=== PATIENT | male | born 1955 | race Caucasian/White ===

== ENCOUNTER 2021-05-30 07:54 | Outpatient (CLI) | payer BC, SELFPAY ==
--- NOTE | ~2021-05-30 | NM_ITS ---
EXAMINATION: NM bone scan whole body DATE: 05/30/2021 10:30 INDICATION: Prostate cancer TECHNIQUE: 37.2 mCi Tc-99m HDP was administered intravenously. Delayed whole-body scintigrams were o btained. COMPARISON: There are no recent relevant imaging studies at our institution. FINDINGS: Typical distribution of mild likely degenerative joint centered uptake at the radial aspect of the bi lateral carpi and at a few joints in the hands and feet. No other suspicious foci of abnormal bone up take. IMPRESSION: 1. No lesion suspicious for osseous metastatic disease. Reviewed, dictated and finalized at location A.
== END 2021-05-30 07:55 | disposition home or self-care (01) ==
PROVIDERS: PCP Family Medicine; Visit Provider Urology
DX: C61 Malignant neoplasm of prostate (principal)
CPT/HCPCS: 78306; A9561

== ENCOUNTER 2021-07-20 13:42 | Outpatient (CLI) | payer BC, SELFPAY ==
--- NOTE | 2021-07-20 13:46 | ECG_ITS ---
Measurements Intervals [place] Rate: 75 P: 73 IA: 164 QRS: -1 QRSD: 101 T: 63 QT: 367 QTc: 411 Interpretive Statements SINUS RHYTHM POSSIBLE LEFT ATRIAL ENLARGEMENT BORDERLINE R WAVE PROGRESSION, ANTERIOR LEADS CONSIDER INFERIOR INFARCT, AGE INDETERMINATE BASELINE ARTIFACT- I, II, III, AVR, AVL ABNORMAL ECG Electronically Signed On 07-20-2021 15:15:21 CDT by Karl Ulloa D.O.
[2021-07-20 14:11] LABS: Basophils Absolute Auto 0.1 K/mm3 (0.0-0.1); Basophils Percent Auto 0.5 % (0.2-1.2); Eosinophils Absolute Auto 0.2 K/mm3 (0-0.3); Eosinophils Percent Auto 1.7 % (0-4.4); Hematocrit 46.7 % (42.0-52.0); Hemoglobin 15.9 g/dL (14.0-18.0); Immature Granulocyte Absolute 0.03 K/mm3 (0.00-0.031); Immature Granulocyte Percent A 0.3 % (0-0.5); Lymphocytes Absolute Auto 2.73 K/mm3 (0.9-3.2); Lymphocytes Percent Auto 24.8 % (18.3-44.2); Mean Corpuscular Hemoglobin 29.1 pg (26-34); Mean Corpuscular Volume 85.5 fl (80-100); Mean Platelet Volume 9.1 fl (7.4-10.4); Monocytes Absolute Auto 0.7 K/mm3 (0.1-0.6); Monocytes Percent Auto 6.7 % (2.6-8.5); Neutrophils Absolute Auto 7.3 K/mm3 (1.3-6.7); Platelet Count Result 317 k/mm3 (150-375); Red Blood Count 5.46 M/mm3 (4.6-6.20); Red Cell Distribution Width 13.4 % (11.5-14.5)
[2021-07-20 14:20] LABS: INR 0.9; Prothrombin Time 12.5 Seconds (11.1-14.7)
[2021-07-20 14:21] LABS: Partial Thromboplastin Time 27.7 SECONDS (22.3-36.8)
[2021-07-20 14:28] LABS: Alanine Aminotransferase 49 U/L (4-50); Albumin Level 4.8 g/dL (3.5-5.1); Alkaline Phosphatase 83 U/L (38-126); Anion Gap 9 mmol/L (8-16); Aspartate Amino Transferase 36 U/L (17-59); Bilirubin,Total 0.5 mg/dL (0.2-1.3); Blood Urea Nitrogen 14 mg/dL (9-20); Calcium 9.8 mg/dL (8.4-10.2); Carbon Dioxide 28 mmol/L (22-30); Chloride 100 mmol/L (98-107); Estimated Glomerular Filt Rate > 60; Glucose 161 mg/dL (65-110); Potassium 3.9 mmol/L (3.4-5.0); Sodium 137 mmol/L (137-145)
== END 2021-07-20 13:43 | disposition home or self-care (01) ==
LOC: ANHSURGERY 13:45
PROVIDERS: PCP Family Medicine; Visit Provider Urology
DX: Z01.818 Encounter for other preprocedural examination (principal); C61 Malignant neoplasm of prostate; I10 Essential (primary) hypertension; R94.31 Abnormal electrocardiogram [ECG] [EKG]
CPT/HCPCS: 36415; 80053; 85025; 85610; 85730; 86850; 86900; 86901; 87086; 93005

== ENCOUNTER 2021-08-01 00:25 | Day surgery (SDC) | payer BC, SELFPAY ==
--- NOTE | 2021-07-20 11:06 | PC.NURSE ---
Report to the Outpatient Waiting Room, entrance under the green pavilion located off [facility], at time __6:00AM on date _08/01/21____. OR Time: ___7:30AM . - You and your visitor will be asked a series of questions to screen for COVID 19 for your protection. - A mask is required within the hospital. - Only one visitor is allowed at this time. Patient visitors will be guided where to wait when not with patient. Preoperative COVID Testing Requirements: No COVID Test needed if: (proof is required; if not received patient will have Rapid Test prior to entry) - Patient has received COVID Vaccine at least 14 days prior to procedure date or - Patient has positive COVID test result within last 90 days of surgery date. COVID Test needed if above criteria is not met If not COVID vaccinated a COVID test must be conducted within 72 hours of surgery and patient is asked to isolate self from time of testing until procedure. You will go to the [facility] for your COVID testing. The [facility] is located at the corner of [address] [facility]. You will only be called if COVID results are positive and your surgeon may reschedule your elective surgery date. Patients may have clear liquids (water, carbonated beverages, clear teas, apple juice) until 3 hours prior to surgery with a maximum of 20 ounces. - No food from midnight until time of surgery - Infants may have breast milk until 4 hours before surgery, infant formula 6 hours prior to surgery. - Children will be allowed to drink immediately following surgery. If applicable, please bring a bottle or sippy cup to assist with drinking. Juice, water, soda, and popsicles are readily available. For infants on formula, please bring formula the day of surgery. Pacifiers are allowed. Take the following medications with a SIP of water the morning of surgery: NONE Medications to discontinue per physician ALL VITAMINS/SUPPLEMENTS 3 DAYS PRE-OP Date to take last dose 07/29/21 Please no make-up, nail hebrew, hairspray, perfume, deodorant, or body powder the day of surgery. No jewelry (including any body piercings) or valuables the day of surgery, leave them at home. Please take a shower or bath the night before, or the morning of, surgery with an antibacterial soap. Wear comfortable, loose fitting clothing. Children are encouraged to wear pajamas. - Jewelry must be removed prior to entering the operating room. Rings and piercings that are not removed may be cut off. - The hospital will not accept responsibility for valuables. - Please leave all valuables, including medications, at home the day of surgery. If you are going home after surgery, a licensed motorcoach driver must drive you home. - NO public transportation without another adult. - We recommend that an adult stay with you for 24 hours following discharge. - We also recommend that you do not drive, make important decision, drink alcoholic beverages, or take any drugs that were not prescribed by your health care provider for at least 24 hours after your discharge time. For Pediatric surgeries, we recommend two adults accompany the child home (only one inside the building at this time). Follow any additional instructions given to you from your surgeon. Telephone instructions given to __PATIENT'S -GAIL and asked if any additional questions and then verbalized understanding. Patient advised to call surgeon office or pre surgery nurse liaison [phone] if any additional questions.
[2021-07-20 11:18] VITALS: BMI 27.7
--- NOTE | 2021-07-31 13:55 | WPDANESEPPF ---
Anes - Initial Pre Proc Eval Procedure: Operation Date: 08/01/21 07:30 Proposed Procedures p Robotic Assisted Nerve Sparing Prostatectomy, Possible Bilateral Pelvic Lymph Node Dissection - Manuel Pitts MD Date/Time: 07/31/21 13:55 Surgeon: Manuel Pitts MD Pre Op Diagnosis: Prostate Cancer Patient Data Age: 66 Gender: M Height: 1.88 m Weight: 98 kg Allergies Allergy/AdvReac Type Severity Reaction Status Date / Time aspirin Allergy Mild Hives Verified 08/01/21 07:03 meperidine AdvReac Mild Other Verified 08/01/21 07:05 Home Medications Medication Instructions Recorded Confirmed Type A-C-E-zinc ox-cupric ox-lutein 2 tablet PO DAILY 07/20/21 07/20/21 History [Ocular Vitamins] budesonide-formoterol [Symbicort] 2 puff INHALATION HS 07/20/21 07/20/21 History cholecalciferol (vitamin D3) 50 mcg PO DAILY 07/20/21 07/20/21 History cyanocobalamin (vitamin B-12) 1,000 mcg PO DAILY 07/20/21 07/20/21 History glimepiride 2 mg PO QAM 07/20/21 07/20/21 History lisinopril-hydrochlorothiazide 1 tablet PO QAM 07/20/21 07/20/21 History metformin 1,000 mg PO BID 07/20/21 07/20/21 History prednisolone acetate 1 drp LEFT EYE USEASDIRECTD 07/20/21 07/20/21 History sitagliptin [Januvia] 100 mg PO QAM 07/20/21 07/20/21 History vitamin E 180 unit PO DAILY 07/20/21 07/20/21 History Patient hx anesthesia problems: none Family hx anesthesia problems: none Results Review: All pre-operative results and documents have been reviewed as part of the pre-operative evaluation. [facility] Past Medical History Medical History (Updated 08/01/21 @ 07:07 by Arden Nolen MD) Asthma Back pain Chronic GERD Diabetes HTN (hypertension) Overweight (BMI 25.0-29.9) Prostate CA Family History Family History (Updated 05/08/16 @ 10:18 by DOCTOR UNKNOWN) Grandparent Diabetes mellitus Family history of malignant neoplasm Social History Social History Smoking status: Never smoker Alcohol intake: never Substance use: never Living arrangements: with family Additional living arrangements comments: Spiritual care concerns: No Anes - Eval Final PreProcedure Day of Procedure 07/31/21 13:55 Patient weight: overweight Heart: regular rate and rhythm Lungs: clear to auscultation and normal air movement Airway: Mallampati scale class II Neurological: alert and oriented Last oral intake: >/= 8 hours ASA classification: III Emergent: no Anesthetic plan: proceed Anesthesia type and monitoring: general ETT Results Review: All pre-operative results and documents have been reviewed as part of the pre-operative evaluation. Informed Consent: The patient's anesthetic plan and its attendant risks and benefits were discussed with the patient/family/POA. Questions were solicited and answers provided to the satisfaction of the patient/family/POA.
[2021-08-01] VITALS (14 sets, daily range): BP systolic 119–144; BP diastolic 62–83; PULSE 70–84; RESP 12–24; TEMP 36.1–36.6; O2SAT 95–100
[2021-08-01] MEDS: LACTATED RINGERS 1,000 ML 30 ML IV CONT ×3 (06:32→13:27)
[2021-08-01 06:39] LABS: Glucose Point of Care 135 mg/dl (65-105)
--- NOTE | 2021-08-01 07:17 | WPDHPUPDATE1 ---
History and Physical Update Update Date/Time: 08/01/21 07:17 History and Physical has been reviewed, including an updated exam of the patient. There are NO changes in the patient's condition. Risks, benefits, and alternatives have been discussed and questions answered. Patient agrees to proceed with procedure. Proceed with robotic assist nerve sparing porstatectomy with possible plnd.
[2021-08-01] MEDS: ceFAZolin 2 GM/D5W 50 ML 2 GM/50 ML BAG IVPB (07:30)
--- NOTE | 2021-08-01 12:01 | W.PM.PROC2 ---
Procedure Note - Detailed Date of Procedure 08/01/21 Pre-op Diagnosis Prostate Cancer Post-op Diagnosis same Procedure Performed Robotic assisted nerve-sparing prostatectomy with bilateral pelvic lymphadenectomy Surgeon Manuel Pitts MD Anesthesia general Description of Procedure Patient is taken the operative suite correctly identified. Once anesthesia was obtained was placed in low-lying dorsal lithotomy position and prepped and draped usual sterile fashion. Eighteen Kinyarwanda Mayo with 20 cc were placed in bladder. Supraumbilical incision was then made and carried down to the rectus fascia. Veress needle was inserted. The abdomen was insufflated to 15 mmHg pressure. Camera port was placed under direct vision. Working ports were placed in appropriate locations under direct vision also. The robot was docked after the patient was placed in steep Trendelenburg position. All pressure points had been padded. Posterior approach was then obtained. Seminal vesicles were dissected out vas were transected. It was noted that the plane between the prostate and rectum was somewhat difficult to develop this time. I should state that prior starting the posterior approach we had to do an extensive adhesions lysis of adhesions along the left cul-de-sac as well as left lateral wall of the pelvic floor from the colon. Bladder was taken down. Space of Retzius was developed bilaterally. Puboprostatic were taken down. Dorsal venous complex was isolated using an 0 Vicryl in secured to the pubic bone. Bladder neck was then opened anteriorly. Patient had a median lobe which we resected in its entirety with the specimen. Posterior bladder neck was transected. There was a nice bladder sparing neck procedure done. The plane posteriorly was opened to expose the seminal vesicles. Bilateral nerve-sparing was performed. We were able to dissect the prostate off of the rectum at this point time. Dorsal venous complex was transected. Urethra was transected. Specimen was placed in Endo-Catch bag. Bilateral pelvic lymph node dissections were performed with the boundaries being the external iliac vein, obturator nerve, Jacob's ligament, and the bifurcation of the vessels. Clips were placed proximally distally on the packets. The left jason packet had a clip placed on it for identification. These also were placed in Endo-Catch bags. The wound was irrigated. Surgicel was placed in the obturator fossa as well as on the floor where the neurovascular bundles were located. We then placed a Allan stitch using 0 Vicryl. The bladder neck was then brought down to the urethral stump and anastomosed using V lock suture in a running continuous fashion. There was good approximation of mucosa. Eighteen Kinyarwanda Mayo was then inserted inflated with 10 cc in the balloon. The bladder was filled 200 cc of sterile water. There was no evidence of extravasation at this time. APRIL drain was then placed with the 3rd port site. All lap count needle count sponge counts were correct. The robot was undocked. Specimen was retrieved through the midline incision. Midline incision was closed using 0 Vicryl in a running fashion. Subcuticular stitches were then placed in the port sites. Wounds were anesthetized using 1% lidocaine. Patient tolerated procedure well without any complications taken recovery stable condition. Estimated Blood Loss 100 Drains Yes Packing No Pathology yes Complications No immediate complications Condition stable Disposition PACU
[2021-08-01 12:32] LABS: Glucose Point of Care 207 mg/dl (65-105)
[2021-08-01] MEDS: INSULIN HUMAN REGULAR (*BKC) 100 UNITS/ML SUB-Q (12:44)
[2021-08-01] MEDS: fentaNYL CITRATE INJ (*CRX) 100 MCG/2 ML VIAL 25 MCG IV PUSH ×6 (12:58→13:38)
[2021-08-01] MEDS: LACTATED RINGERS 1,000 ML 125 ML IV CONT (15:43)
[2021-08-01] MEDS: hydroCHLOROthiazide 12.5 MG CAPSULE PO (15:48)
[2021-08-01] MEDS: lisinopriL 20 MG TABLET PO (15:49)
[2021-08-01 17:07] LABS: Glucose Point of Care 184 mg/dl (65-105)
[2021-08-01] MEDS: metFORMIN HCL 500 MG TABLET 1000 MG PO (17:21)
[2021-08-01] MEDS: DOCUSATE SODIUM 100 MG CAPSULE PO (17:21)
--- NOTE | 2021-08-01 19:00 | WPDCN ---
Assessment and Plan Assessment and plan (1) Prostate cancer: Code(s): C61 - Malignant neoplasm of prostate Status: Acute Assessment and Plan: Postoperative day 0 status post robotic assisted nerve-sparing prostatectomy with bilateral pelvic lymphadenectomy. Wound care, pain control, DVT prophylaxis defer to primary service. (2) Type 2 diabetes mellitus: Code(s): E11.9 - Type 2 diabetes mellitus without complications Status: Acute Assessment and Plan: Resume oral diabetes medication. Initiate sliding scale insulin, Accu-Cheks, and hypoglycemic protocol. Check hemoglobin A1c in a.m. (3) Hypertension: Code(s): I10 - Essential (primary) hypertension Status: Acute Assessment and Plan: Blood pressures were reviewed and they have been stable postoperatively. Resume antihypertensives and monitor closely. (4) Asthma: Code(s): J45.909 - Unspecified asthma, uncomplicated Status: Acute Assessment and Plan: No acute issues. Continue Symbicort. Additional Plan Thank you for allowing us to participate in this patient's care. Please do not hesitate to contact us with any questions. Supervising physician for this medical consultation is Dr. Harry Campos. HPI Data of Consult Date/Time: 08/01/21 19:00 Requesting Physician: Manuel Pitts MD Primary Care Provider: Sherif Marques MD Consult Narrative Narrative: This is a 66-year-old male with diabetes, hypertension, and recent diagnosis of prostate cancer whom the hospitalist service has been consulted for management of his medical conditions postoperatively. For the last couple of years or so he has had symptoms BPH and during a recent routine appointment with his primary care provider he indicated that his symptoms had gotten worse. A subsequent PSA came back elevated and he was eventually diagnosed with prostate cancer and today he underwent robotic assisted nerve-sparing prostatectomy with bilateral pelvic lymphadenectomy per Dr. Pitts. Postoperatively he has been doing quite well with only minimal discomfort in the pelvic region and somewhat in the low back which he believes is due to positioning in bed. Mayo catheter is in place and has been draining with out issue. He was able to eat dinner without issue and he denies nausea and vomiting. He also denies postoperative fever, chills, sweats, chest pain, and shortness of breath. Review of Systems Review of Systems: Twelve systems were reviewed. No recent cold or flu symptoms. His diabetes is typically well controlled and he rarely sees a glucose over 135. Glucose is evening was over 200 which is somewhat concerning to the patient. No blurry vision, polydipsia, or polyuria. His hypertension has been well controlled. He has no history of cardiac disease. He has asthma which is also well controlled on maintenance inhalers. No history of venous thromboembolism. Except as documented, all other systems were reviewed and are negative. [facility] Past Medical History Medical History (Updated 08/01/21 @ 22:23 by Jessica Tolbert PA-C) Asthma Gastroesophageal reflux disease Hypertension Prostate cancer Spinal stenosis Type 2 diabetes mellitus Surgical History Surgical History (Updated 08/01/21 @ 22:22 by Jessica Tolbert PA-C) History of left cataract extraction History of radical prostatectomy (08/01/21) Robotic assisted nerve-sparing prostatectomy with bilateral pelvic lymphadenectomy for prostate cancer per Dr. Pitts. Family History Family History Grandparent Diabetes mellitus Family history of malignant neoplasm Social History Social History (Updated 08/01/21 @ 22:23 by Jessica Tolbert PA-C) Social History: Surrogate decision maker: Cindy Juarez, . Code status:
[2021-08-01 20:16] LABS: Hemoglobin A1C 6.5 % (<5.7)
[2021-08-01] MEDS: HYOSCYAMINE SULFATE 0.125 MG TABLET SUBLINGUAL (20:37)
[2021-08-01 21:16] LABS: Glucose Point of Care 204 mg/dl (65-105)
[2021-08-01] MEDS: HYDROcodone/acetaminophen (*CRX) 5-325 MG TABLET 2 TAB PO (22:44)
[2021-08-02] VITALS: BP 132/70; PULSE 71; RESP 18; TEMP 36.5; O2SAT 99
[2021-08-02] MEDS: LACTATED RINGERS 1,000 ML 125 ML IV CONT (02:05)
[2021-08-02 05:07] VITALS: BP 141/65; PULSE 73; RESP 16; TEMP 36.2; O2SAT 99
[2021-08-02 05:38] LABS: Hematocrit 41.2 % (42.0-52.0); Hemoglobin 13.7 g/dL (14.0-18.0)
[2021-08-02 06:01] LABS: Alanine Aminotransferase 27 U/L (4-50); Albumin Level 3.5 g/dL (3.5-5.1); Alkaline Phosphatase 85 U/L (38-126); Anion Gap 8 mmol/L (8-16); Aspartate Amino Transferase 20 U/L (17-59); Bilirubin,Total 0.4 mg/dL (0.2-1.3); Blood Urea Nitrogen 10 mg/dL (9-20); Calcium 8.6 mg/dL (8.4-10.2); Carbon Dioxide 27 mmol/L (22-30); Chloride 99 mmol/L (98-107); Estimated CRCL calculation 85 ml/min; Estimated Glomerular Filt Rate > 60; Glucose 128 mg/dL (65-110); Magnesium 1.7 mg/dL (1.6-2.3); Potassium 3.5 mmol/L (3.4-5.0); Sodium 134 mmol/L (137-145)
[2021-08-02] MEDS: HYDROcodone/acetaminophen (*CRX) 5-325 MG TABLET 1 TAB PO ×2 (06:09→14:33)
[2021-08-02] MEDS: HYOSCYAMINE SULFATE 0.125 MG TABLET SUBLINGUAL (06:18)
[2021-08-02 07:36] LABS: Glucose Point of Care 165 mg/dl (65-105)
--- NOTE | 2021-08-02 07:58 | WPDUROPN2 ---
Progress Note: A&P Assessment and Plan (1) Prostate cancer: Code(s): C61 - Malignant neoplasm of prostate Status: Acute Assessment and Plan: Doing well at this time. Ambulate with assistance. Possible discharge later today. Patient will be evaluated by our nurse practitioner. He will follow up next week for catheter cystogram Subjective Subjective Date/Time Seen: 08/02/21 07:58 Post Op day: 1 Principal diagnosis: Adenocarcinoma of the prostate Interval history: Patient had trouble sleeping last night but denies any significant pain or discomfort at this time. He is up in a chair eating breakfast Review of Systems Review of Systems: All systems reviewed & are unremarkable except as noted in HPI and below Exam Const: General: cooperative, comfortable and no acute distress Resp: Effort & Inspection: normal respiratory effort Cardio: Rate: regular rate Rhythm: regular rhythm GI: Inspection: normal to inspection GI Palp: Yes Soft to palpation Urinary Catheter: Urinary Catheter: patent and draining and urine clear Objective Data Vital Signs Vital Signs: Vital Signs - 24 hr 08/01/21 12:25 08/01/21 12:40 08/01/21 12:45 Temperature 36.1 C L Pulse Rate 70 71 73 Respiratory Rate 24 H 14 16 Blood Pressure 119/62 130/70 130/70 Pulse Oximetry 100 100 100 08/01/21 13:00 08/01/21 13:15 08/01/21 13:30 Temperature Pulse Rate 71 76 76 Respiratory Rate 13 16 12 Blood Pressure 123/83 135/72 130/70 Pulse Oximetry 100 96 95 08/01/21 13:45 08/01/21 14:30 08/01/21 14:45 Temperature 36.2 C L 36.2 C L Pulse Rate 75 79 78 Respiratory Rate 12 16 18 Blood Pressure 134/76 133/72 132/68 Pulse Oximetry 95 98 97 08/01/21 15:15 08/01/21 16:15 08/01/21 20:00 Temperature 36.3 C L 36.6 C Pulse Rate 78 82 84 Respiratory Rate 18 18 16 Blood Pressure 139/71 131/69 Pulse Oximetry 97 96 99 08/01/21 20:36 08/02/21 00:00 08/02/21 05:07 Temperature 36.2 C L 36.5 C 36.2 C L Pulse Rate 84 71 73 Respiratory Rate 16 18 16 Blood Pressure 133/73 132/70 141/65 H Pulse Oximetry 99 99 99 Intake/Output Intake/Output: Intake & Output 07/30/21 07/31/21 08/01/21 08/02/21 23:59 23:59 23:59 23:59 Intake Total 3490 500 Output Total 390 2130 Balance 3100 -1630 Meds/Results Medications: Active Medications Generic Name Dose Route Start Last Admin Trade Name Freq PRN Reason Stop Dose Admin Hydrocodone Bitart/Acetaminophen 1 tab 08/01/21 14:00 08/02/21 06:09 Hydrocodone/Acetaminophen (*Crx) 5-325 Mg Tablet PO 1 tab Q6H PRN Administration Pain Rated 1-3 Hydrocodone Bitart/Acetaminophen 2 tab 08/01/21 14:00 08/01/21 22:44 Hydrocodone/Acetaminophen (*Crx) 5-325 Mg Tablet PO 2 tab Q6H PRN Administration Pain Rated 4-6 Dextrose 12.5 gm 08/01/21 16:36 Dextrose 50% 25 Gm/50 Ml Syringe IV PUSH PRN PRN Hypoglycemia Protocol Docusate Sodium 100 mg 08/01/21 17:00 08/01/21 17:21 Docusate Sodium 100 Mg Capsule PO 100 mg BID JENNY Administration Glimepiride 2 mg 08/02/21 08:00 Glimepiride 2 Mg Tablet PO DAILY@0800 JENNY Glucagon 1 mg 08/01/21 16:36 Glucagon For Inj 1 Mg Vial IM PRN PRN Hypoglycemia Protocol Glucose 15 gm 08/01/21 16:36 Glucose Oral Gel 15 Gm Of Glucse In 37.5 Gm Tube PO PRN PRN Hypoglycemia Protocol Hydrochlorothiazide 12.5 mg 08/01/21 14:30 08/01/21 15:48 Hydrochlorothiazide 12.5 Mg Capsule PO 09/01/21 14:29 12.5 mg QAM JENNY Administration Hyoscyamine 0.125 mg 08/01/21 14:00 08/02/21 06:18 Hyoscyamine Sulfate 0.125 Mg Tablet SUBLINGUAL 0.125 mg Q4H PRN Administration Bladder Spasm Lactated Ringer's 1,000 mls @ 125 mls/hr 08/01/21 14:00 08/02/21 02:05 Lr - Lactated Ringers Iv IV CONT 125 mls/hr .Q8H JENNY Administration Dextrose 1,000 mls @ 100 mls/hr 08/01/21 16:36 Dextrose 5% 1,000 Ml IVPB PRN PRN Hypoglycemi
[2021-08-02] MEDS: FLUTICASONE/SALMETEROL 115-21 MCG INHALER 1 PUFF 2 PUFF INHALATION (08:28)
[2021-08-02] MEDS: DOCUSATE SODIUM 100 MG CAPSULE PO (08:30)
[2021-08-02] MEDS: hydroCHLOROthiazide 12.5 MG CAPSULE PO (08:30)
[2021-08-02] MEDS: metFORMIN HCL 500 MG TABLET 1000 MG PO (08:30)
[2021-08-02] MEDS: MAGNESIUM SULF 2 GM/WATER 50ML 2 GM/50 ML BAG IVPB (08:30)
[2021-08-02] MEDS: levoFLOXacin 500 MG TABLET PO (08:30)
[2021-08-02] MEDS: GLIMEPIRIDE 2 MG TABLET PO (08:30)
[2021-08-02] MEDS: lisinopriL 20 MG TABLET PO (09:00)
[2021-08-02 09:15] VITALS: BP 126/64; PULSE 85; RESP 14; TEMP 36.2; O2SAT 99
--- NOTE | 2021-08-02 09:48 | WPDANESPN ---
Anes - Prog Note Post-Op Date/Time: 08/02/21 09:48 Cardiovascular status: normal Respiratory status: normal Airway patency: baseline Mental status: baseline Post-Op hydration status: normal Vital Signs: Last Vital Signs Temp 97.2 F L 08/02/21 05:07 Pulse 73 08/02/21 05:07 Resp 16 08/02/21 05:07 BP 141/65 H 08/02/21 05:07 Pulse Ox 99 08/02/21 05:07 Pain Score (VAS): 0/10 I/O: Intake & Output 08/01/21 08/02/21 08/02/21 23:59 07:59 15:59 Intake Total 1840 500 600 Output Total 320 2130 Balance 1520 -1630 600 Laboratory Tests 08/02/21 05:09 08/02/21 05:09 08/01/21 08/01/21 08/01/21 12:27 16:57 17:05 Hgb Hct Sodium Potassium Chloride Carbon Dioxide Anion Gap BUN Creatinine Estim Creat Clear Calc Estimated GFR Glucose POC Capillary Glucose 207 H 184 H Hemoglobin A1c 6.5 H Calcium Magnesium Total Bilirubin Direct Bilirubin AST ALT Alkaline Phosphatase Total Protein Albumin 08/01/21 08/02/21 08/02/21 20:34 05:09 05:09 Hgb 13.7 L Hct 41.2 L Sodium 134 L Potassium 3.5 Chloride 99 Carbon Dioxide 27 Anion Gap 8 BUN 10 Creatinine 0.90 Estim Creat Clear Calc 85 Estimated GFR > 60 Glucose 128 H POC Capillary Glucose 204 H Hemoglobin A1c Calcium 8.6 Magnesium 1.7 Total Bilirubin 0.4 Direct Bilirubin 0.0 AST 20 ALT 27 Alkaline Phosphatase 85 Total Protein 6.0 L Albumin 3.5 08/02/21 07:32 Hgb Hct Sodium Potassium Chloride Carbon Dioxide Anion Gap BUN Creatinine Estim Creat Clear Calc Estimated GFR Glucose POC Capillary Glucose 165 H Hemoglobin A1c Calcium Magnesium Total Bilirubin Direct Bilirubin AST ALT Alkaline Phosphatase Total Protein Albumin Patient Feedback: Patient satisfied with anesthetic care.
--- NOTE | 2021-08-02 11:20 | PM.IMPN ---
Progress Note: A&P Assessment and Plan (1) Prostate cancer: Code(s): C61 - Malignant neoplasm of prostate Status: Acute Assessment and Plan: Postoperative day 1 status post robotic assisted nerve-sparing prostatectomy with bilateral pelvic lymphadenectomy Wound care pain control DVT prophylaxis: Maxine and Agustin zaldivar (2) Type 2 diabetes mellitus: Code(s): E11.9 - Type 2 diabetes mellitus without complications Status: Acute Assessment and Plan: Resume oral diabetes medication. Initiate sliding scale insulin Accu-Cheks hypoglycemic protocol. hemoglobin A1c 6.5 (3) Hypertension: Code(s): I10 - Essential (primary) hypertension Status: Acute Assessment and Plan: Current BP 126/64 Blood pressures were reviewed and they have been stable postoperatively. Resume antihypertensives Trend BP Adjust medications as needed (4) Asthma: Code(s): J45.909 - Unspecified asthma, uncomplicated Status: Acute Assessment and Plan: No acute issues. Continue Symbicort. Time Spent With Patient Time with patient: 25 - 35 minutes Subjective Date/time seen: 08/02/21 11:20 Interval history: Date/Time: 08/01/21 19:00 Narrative: This is a 66-year-old male with diabetes, hypertension, and recent diagnosis of prostate cancer whom the hospitalist service has been consulted for management of his medical conditions postoperatively. For the last couple of years or so he has had symptoms BPH and during a recent routine appointment with his primary care provider he indicated that his symptoms had gotten worse. A subsequent PSA came back elevated and he was eventually diagnosed with prostate cancer and today he underwent robotic assisted nerve-sparing prostatectomy with bilateral pelvic lymphadenectomy per Dr. Pitts. Postoperatively he has been doing quite well with only minimal discomfort in the pelvic region and somewhat in the low back which he believes is due to positioning in bed. Mayo catheter is in place and has been draining with out issue. He was able to eat dinner without issue and he denies nausea and vomiting. He also denies postoperative fever, chills, sweats, chest pain, and shortness of breath. Date/Time: 08/02/21 1120 Patient is sitting in the chair. He complained of pain when he got up, however, it did subside when since he has been up. He does have concerns about walking. He does have a drain present that is draining a sanioserous fluid. However, the drain has an air leak. Did talk to Cecilia LR about findings. It was suggested to change out the bulb, which was performed, and air leak still observed. Patient denies chest pain, shortness of breath, weakness, fatigue, nausea, vomiting, abdominal pain, fevers, sweats, or chills. Review of Systems Review of Systems: All systems reviewed & are unremarkable except as noted in HPI and below Exam Const: General: cooperative, healthy appearing, well developed, alert and awake Nutritional Appearance: well nourished Orientation/consciousness: oriented to person, oriented to place, oriented to time and patient oriented x3 Limitations: no limitations HENMT: Head: normal to inspection Ears: hearing grossly normal bilaterally General nose exam: Normal external nose present Mouth: Yes Normal oral and palatal mucosa present, Yes lip normal and Yes tongue normal Teeth and gingiva: abnormal tooth and associated gingiva and poor dentition Eyes: General: appearance normal, both eyes and all related structures Neck: Neck: normal visual inspection, full ROM, trachea midline and supple Chest: Chest palpation & inspection: normal inspection of the chest Resp: Effort & Inspection: normal respiratory effort and able to speak in complete sentences Auscultation: clear to auscultation bilaterally Cardio: Jugular venous distension: no JVD Rate: regular rate Rhythm: regular rhythm Heart sound
[2021-08-02 11:56] LABS: Glucose Point of Care 149 mg/dl (65-105)
--- NOTE | 2021-08-02 13:51 | PM.DS ---
DS: Admitting Diagnosis Discharge Date 08/02/2021 Admitting Diagnosis Prostate Cancer DS: Discharge Diagnosis Discharge Diagnosis (1) Prostate CA: Code(s): C61 - Malignant neoplasm of prostate Status: Acute DS: Summary Hospital Course Hospital Course: See below. Time Spent with Patient Time attestation: Total time spent providing and/or coordinating discharge services: 30 minutes The patient underwent a Robotic assisted nerve-sparing prostatectomy with bilateral pelvic lymphadenectomy on 08/01/[address] Pitts. He tolerated the procedure well and went to recovery in stable condition. He did well overnight and is tolerating diet, activity and pain well. He will go home today with his catheter to f/u next week after his cystogram for voiding trial. He can resume a regular diet and activity as tolerated. He will resume home medications in addition to pain medications, antibiotics, stool softeners and anti spasmodics. Exam Resp: Effort & Inspection: normal respiratory effort Cardio: Rate: regular rate GI: Inspection: incision (all are well approximated, tender to palpation, no edema or drainage.) GI Palp: No Tenderness to palpation present (GI) : General: Yes no CVA tenderness Urinary Catheter: Urinary Catheter: patent and draining and urine clear Extrem: General: no edema DS: Data Data Completed and Pending Pending studies at discharge: Pending at discharge 08/01/21 11:34 Surgical [PTH] Routine Labs on day of discharge: Labs from last 24 hours 08/02/21 08/02/21 08/02/21 11:52 07:32 05:09 Hgb Hct Sodium 134 L Potassium 3.5 Chloride 99 Carbon Dioxide 27 Anion Gap 8 BUN 10 Creatinine 0.90 Estim Creat Clear Calc 85 Estimated GFR > 60 Glucose 128 H POC Capillary Glucose 149 H 165 H Hemoglobin A1c Calcium 8.6 Magnesium 1.7 Total Bilirubin 0.4 Direct Bilirubin 0.0 AST 20 ALT 27 Alkaline Phosphatase 85 Total Protein 6.0 L Albumin 3.5 08/02/21 08/01/21 08/01/21 05:09 20:34 17:05 Hgb 13.7 L Hct 41.2 L Sodium Potassium Chloride Carbon Dioxide Anion Gap BUN Creatinine Estim Creat Clear Calc Estimated GFR Glucose POC Capillary Glucose 204 H 184 H Hemoglobin A1c Calcium Magnesium Total Bilirubin Direct Bilirubin AST ALT Alkaline Phosphatase Total Protein Albumin 08/01/21 16:57 Hgb Hct Sodium Potassium Chloride Carbon Dioxide Anion Gap BUN Creatinine Estim Creat Clear Calc Estimated GFR Glucose POC Capillary Glucose Hemoglobin A1c 6.5 H Calcium Magnesium Total Bilirubin Direct Bilirubin AST ALT Alkaline Phosphatase Total Protein Albumin Discharge Plan Discharge Patient Disposition: Home, Self-Care Discharge Instructions: Follow up in the office next week after you cystogram on 08/09/2021 to have your morgan removed. Keep a dry dressing on your drain site and change daily and as needed. Wash all incisions with soap and water and pat dry. Ok to walk, avoid any strenuous activity. Call the office for fevers >102, grossly bloody urine or a catheter that will not drain. Stand Alone Forms: General Discharge Instructions Follow-up/Referrals: Manuel Pitts MD [Physician] - Discharge Medications: New hyoscyamine sulfate [Anaspaz] 0.125 mg Tablet,Disintegrating 0.125 mg sublingual Q4H PRN (Reason: Bladder Spasm) Qty: 20 RF: 1 docusate sodium 100 mg Capsule 100 mg PO BID Qty: 14 RF: 0 cephalexin 500 mg capsule 500 mg PO Q12H Qty: 10 RF: 0 hydrocodone-acetaminophen 5-325 mg tablet 1 tablet PO Q6H PRN (Reason: pain) Qty: 20 RF: 0 Continued lisinopril-hydrochlorothiazide 20-12.5 mg tablet 1 tablet PO QAM RF: 0 glimepiride 2 mg tablet 2 mg PO QAM RF: 0 metformin 1,000 mg tablet 1,000 mg PO BID RF: 0 vitamin E 100 unit T
== END 2021-08-02 15:07 | disposition home or self-care (01) ==
LOC: ANHSURGERY 05:53 → ANH2MED 14:22
PROVIDERS: Physician Assistant; PCP Family Medicine; Visit Provider Urology
PROC: 0VT04ZZ Resection of Prostate, Percutaneous Endoscopic Approach (ICD-10-PCS; CPT 55867; principal; 2021-08-01 07:30)
DX: C61 Malignant neoplasm of prostate (principal); N41.1 Chronic prostatitis; I10 Essential (primary) hypertension; E11.9 Type 2 diabetes mellitus without complications; K21.9 Gastro-esophageal reflux disease without esophagitis; J45.909 Unspecified asthma, uncomplicated; Z79.84 Long term (current) use of oral hypoglycemic drugs; Z79.51 Long term (current) use of inhaled steroids
CPT/HCPCS: 55866; 38571; S2900; 36415; 80048; 80053; 80076; 82948; 83036; 83735; 85014; 85018; 85025; 85610; 85730; 86850; 86900; 86901; 87086; 88307; 88309; 93005; 94640; 97161; A9270; J0690; J1100; J1815; J2250; J2405; J2704; J2710; J3010; J3475; J7030; J7120

== ENCOUNTER 2021-08-09 08:03 | Outpatient (CLI) | payer BC, SELFPAY ==
--- NOTE | ~2021-08-09 | XR_ITS ---
EXAMINATION: XR cystogram EXAM DATE: 08/09/2021 08:50 INDICATION: One-week postoperative for prostate cancer. TECHNIQUE: Fluoroscopic guidance used during cystogram performed by Dr. Alan Barroso, radiologist, thr [facility] Mayo catheter in place on patient arrival. An Omnipaque 350/saline solution was used and allowe d to infuse through the Mayo catheter under gravity. Certified Shorthand Reporter image, fluoroscopic images and postevacua tion image were obtained. Total fluoroscopic time of 0.1. The DAP for this procedure was 11.2 mGym2 . A total of 22 images obtained for the exam. There is no prior study for comparison. FINDINGS: Certified Shorthand Reporter image is unremarkable. Patient tolerated approximately 125 milliliters of distention. Bladder has trabecular appearance with several small diverticula. No contrast extravasation. IMPRESSION: No contrast extravasation. Mild bladder wall trabeculation, small bladder diverticula. Reviewed, dictated and finalized at location A. DISTRIBUTION SCHEME EXAMINER
== END 2021-08-09 08:04 | disposition home or self-care (01) ==
PROVIDERS: PCP Family Medicine; Visit Provider Urology
DX: C61 Malignant neoplasm of prostate (principal)
CPT/HCPCS: 51600; 74430; Q9967

== ENCOUNTER 2021-09-06 07:08 | Outpatient (CLI) | payer BC, SELFPAY ==
[2021-09-06 08:24] LABS: Influenza A QL RT-PCR Negative (Negative); Influenza B QL RT-PCR Negative (Negative); SARS-CoV-2 RNA PCR Positive (Negative)
== END 2021-09-06 07:09 | disposition home or self-care (01) ==
LOC: CHSLAB 07:10
PROVIDERS: PCP Family Medicine; Visit Provider Family Medicine
DX: U07.1 COVID-19 (principal); R05.9 Cough, unspecified
CPT/HCPCS: 87502; C9803; U0003; U0005

== ENCOUNTER 2021-09-06 12:03 | Outpatient (RCR) | payer BC, SELFPAY ==
[2021-09-06 14:06] VITALS: BP 146/79; PULSE 86; RESP 18; TEMP 36.1; O2SAT 98
[2021-09-06] MEDS: diphenhydrAMINE HCl CAP 25 MG CAPSULE PO (14:11)
[2021-09-06] MEDS: FAMOTIDINE 20 MG TABLET PO (14:11)
[2021-09-06] MEDS: ACETAMINOPHEN 325 MG TABLET 650 MG PO (14:11)
[2021-09-06 15:36] VITALS: BP 149/69
--- NOTE | 2021-09-07 09:50 | PC.NURSE ---
Called Ms Juarez, he said he is doing great. He also, stated he did not take the medication as directed as he thought there was no need since he felt so well., He has no questions at this time.
== END 2021-09-06 16:00 ==
LOC: AMCINF 12:03
PROVIDERS: PCP Family Medicine; Visit Provider Internal Medicine Hematology & Oncology
DX: U07.1 COVID-19 (principal); I10 Essential (primary) hypertension; E11.9 Type 2 diabetes mellitus without complications
CPT/HCPCS: A9270; M0245; Q0245

== ENCOUNTER 2021-11-14 14:49 | Outpatient (CLI) | payer BC, SELFPAY | END 2021-11-14 14:50 | disposition home or self-care (01) | LOC: CHSOUTPT 14:51 | PROVIDERS: PCP Family Medicine; Visit Provider Specialist | DX: L01.00 Impetigo, unspecified (principal) | CPT/HCPCS: 87070; 87205 ==

== ENCOUNTER 2022-06-25 00:12 | Day surgery (SDC) | payer BC, SELFPAY ==
[2022-06-08 14:13] VITALS: BMI 24.7
[2022-06-25 07:15] VITALS: BP 113/68; PULSE 61; RESP 18; TEMP 36.1; O2SAT 100; BMI 25.2
[2022-06-25] MEDS: LACTATED RINGERS 1,000 ML 150 ML IV CONT (07:45)
[2022-06-25 07:46] LABS: Glucose Point of Care 135 mg/dl (65-105)
--- NOTE | 2022-06-25 08:26 | WPDANESEPPF ---
Anes - Initial Pre Proc Eval Procedure: Operation Date: 06/25/22 08:30 Proposed Procedures p Screening Colonoscopy - Vinnie Sandhu MD Date/Time: 06/25/22 08:26 Surgeon: Vinnie Sandhu MD Pre Op Diagnosis: neoplasm screening Patient Data Age: 66 Gender: M Height: 1.88 m Weight: 89.2 kg Last Vital Signs Temp 97.0 F L 06/25/22 07:15 Pulse 61 06/25/22 07:15 Resp 18 06/25/22 07:15 BP 113/68 06/25/22 07:15 Pulse Ox 100 06/25/22 07:15 O2 Del Method Room Air 06/25/22 07:15 Allergies Allergy/AdvReac Type Severity Reaction Status Date / Time aspirin Allergy Mild Hives Verified 06/25/22 07:26 meperidine AdvReac Mild Other Verified 06/25/22 07:26 Home Medications Medication Instructions Recorded Confirmed Type budesonide-formoterol HFA 160 2 puff inhalation HS 07/20/21 06/25/22 History mcg-4.5 mcg/actuation aerosol inhaler (Symbicort) cholecalciferol (vitamin D3) 50 50 mcg PO DAILY 07/20/21 06/25/22 History mcg (2,000 unit) tablet cyanocobalamin (vitamin B-12) 1,000 mcg PO DAILY 07/20/21 06/25/22 History 1,000 mcg capsule lisinopril 20 1 tablet PO QAM 07/20/21 06/25/22 History mg-hydrochlorothiazide 12.5 mg tablet metformin 1,000 mg tablet 1,000 mg PO BID 07/20/21 06/25/22 History prednisolone acetate 1 % eye 1 drp LEFT EYE USEASDIRECTD 07/20/21 06/25/22 History drops,suspension sitagliptin 100 mg tablet (Januvia) 100 mg PO QAM 07/20/21 06/25/22 History vitamin E 100 unit tablet 180 unit PO DAILY 07/20/21 06/25/22 History clobetasol 0.05 % topical cream 1 applic topical DAILY 06/08/22 06/25/22 History triamcinolone acetonide 0.1 % 1 applic topical HS 06/08/22 06/25/22 History topical ointment Laboratory Tests 06/25/22 07:36 POC Capillary Glucose 135 mg/dl H mg/dl (65-105) Patient hx anesthesia problems: none Family hx anesthesia problems: none Results Review: All pre-operative results and documents have been reviewed as part of the pre-operative evaluation. [facility] Past Medical History Medical History (Updated 09/06/21 @ 12:13 by Cata Oneill, [facility]) Asthma Gastroesophageal reflux disease Hypertension Prostate cancer Spinal stenosis Type 2 diabetes mellitus Surgical History Surgical History (Updated 08/01/21 @ 22:22 by Jessica Tolbert PA-C) History of left cataract extraction History of radical prostatectomy (08/01/21) Robotic assisted nerve-sparing prostatectomy with bilateral pelvic lymphadenectomy for prostate cancer per Dr. Pitts. Family History Family History Grandparent Diabetes mellitus Family history of malignant neoplasm Social History Social History (Updated 08/01/21 @ 22:23 by Jessica Tolbert PA-C) Social History: Surrogate decision maker: Cindy Juarez, . Code status: Full code. Smoking status: Never smoker Alcohol intake: never Substance use: never Substance use type: does not use Living arrangements: with family Additional living arrangements comments: The patient lives with his in [place]. I believe they have 4 children. 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 Spiritual care concerns: No Anes - Eval Final PreProcedure Day of Procedure 06/25/22 08:26 Patient weight: normal Heart: regular rate and rhythm Lungs: clear to auscultation Airway: Mallampati scale class II Neurological: alert and oriented Last oral intake: >/= 8 hours ASA classification: III Emergent: no Anesthetic plan: proceed Anesthesia type and monitoring: general GIVS and standard monitoring Results Review: All pre-operative results and documents have been reviewed as part of the pre-operative evaluation. Informed Consent: The patient's anesthetic plan and its attendant risks and benefits were discussed with the patient/family/POA. Questions were solicited and answers provided to
--- NOTE | 2022-06-25 08:30 | PM.HPGS ---
History of Present Illness History of Present Illness Consent: Risks, benefits, and alternatives have been discussed and questions answered. Patient agrees to proceed with procedure. Chief complaint: neoplasm screening Narrative: Caleb Juarez is a 66 year old male here for first screening colonoscopy Review of Systems Constitutional: Constitutional: Denies headache(s) and Denies weakness Eyes: Eyes: Denies blurry vision ENT: Reports Normal hearing present, Denies headache(s) and Denies neck pain Cardiovascular: Cardiovascular: Denies chest pain and Denies dyspnea Respiratory: Respiratory: Denies dyspnea Gastrointestinal: Gastrointestinal: Reports no additional gastrointestinal complaints Genitourinary: Genitourinary: Denies dysuria Musculoskeletal: Musculoskeletal: Denies neck pain Integumentary/Breasts: Skin/Breast: Denies dry skin Neurologic: Reports Normal hearing present, Denies headache(s) and Denies weakness Psychiatric: Psychiatric: Denies anxiety Endocrine: Endocrine: Denies change in body appearance Hematologic/Lymphatic: Hematologic/Lymphatic: Denies easy bleeding Allergic/Immunologic: Allergic/Immunologic: Denies urticaria [facility] Past Medical History Medical History (Updated 06/25/22 @ 08:31 by Vinnie Sandhu MD) Asthma Colon cancer screening Gastroesophageal reflux disease Hypertension Prostate cancer Spinal stenosis Type 2 diabetes mellitus Surgical History Surgical History (Updated 08/01/21 @ 22:22 by Jessica Tolbert PA-C) History of left cataract extraction History of radical prostatectomy (08/01/21) Robotic assisted nerve-sparing prostatectomy with bilateral pelvic lymphadenectomy for prostate cancer per Dr. Pitts. Family History Family History Grandparent Diabetes mellitus Family history of malignant neoplasm Social History Social History (Updated 08/01/21 @ 22:23 by Jessica Tolbert PA-C) Social History: Surrogate decision maker: Cindy Juarez, . Code status: Full code. Smoking status: Never smoker Alcohol intake: never Substance use: never Substance use type: does not use Living arrangements: with family Additional living arrangements comments: The patient lives with his in [place]. I believe they have 4 children. 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 Spiritual care concerns: No Meds Home Medications and Allergies Home Medications Medication Instructions Recorded Confirmed Type budesonide-formoterol HFA 160 2 puff inhalation HS 07/20/21 06/25/22 History mcg-4.5 mcg/actuation aerosol inhaler (Symbicort) cholecalciferol (vitamin D3) 50 50 mcg PO DAILY 07/20/21 06/25/22 History mcg (2,000 unit) tablet cyanocobalamin (vitamin B-12) 1,000 mcg PO DAILY 07/20/21 06/25/22 History 1,000 mcg capsule lisinopril 20 1 tablet PO QAM 07/20/21 06/25/22 History mg-hydrochlorothiazide 12.5 mg tablet metformin 1,000 mg tablet 1,000 mg PO BID 07/20/21 06/25/22 History prednisolone acetate 1 % eye 1 drp LEFT EYE USEASDIRECTD 07/20/21 06/25/22 History drops,suspension sitagliptin 100 mg tablet (Januvia) 100 mg PO QAM 07/20/21 06/25/22 History vitamin E 100 unit tablet 180 unit PO DAILY 07/20/21 06/25/22 History clobetasol 0.05 % topical cream 1 applic topical DAILY 06/08/22 06/25/22 History triamcinolone acetonide 0.1 % 1 applic topical HS 06/08/22 06/25/22 History topical ointment Allergies Allergy/AdvReac Type Severity Reaction Status Date / Time aspirin Allergy Mild Hives Verified 06/25/22 07:26 meperidine AdvReac Mild Other Verified 06/25/22 07:26 Vital Signs Vital Signs - 24 hr 06/25/22 07:15 Temperature 97.0 F L Pulse Rate 61 Respiratory Rate 18 Blood Pressure 113/68 Pulse Oximetry 100 Oxygen Delivery Room Air Exam Const: General: comfortable and no acute distress HENMT: Face/Nose
[2022-06-25 08:59] VITALS: BP 103/61; PULSE 62; RESP 21; O2SAT 98
[2022-06-25 09:09] VITALS: BP 101/61; PULSE 58; RESP 24; O2SAT 97
[2022-06-25 09:19] VITALS: BP 110/66; PULSE 59; RESP 20; O2SAT 98
== END 2022-06-25 09:30 | disposition home or self-care (01) ==
PROVIDERS: PCP Family Medicine; Visit Provider Internal Medicine Gastroenterology
PROC: 0DJD8ZZ Inspection of Lower Intestinal Tract, Via Natural or Artificial Opening Endoscopic (ICD-10-PCS; CPT 45378; principal; 2022-06-25 08:30)
DX: Z12.11 Encounter for screening for malignant neoplasm of colon (principal); K57.30 Diverticulosis of large intestine without perforation or abscess without bleeding; K64.8 Other hemorrhoids; E11.9 Type 2 diabetes mellitus without complications; J45.909 Unspecified asthma, uncomplicated; M48.00 Spinal stenosis, site unspecified; I10 Essential (primary) hypertension; K21.9 Gastro-esophageal reflux disease without esophagitis; Z85.46 Personal history of malignant neoplasm of prostate; Z79.84 Long term (current) use of oral hypoglycemic drugs
CPT/HCPCS: 45378; 82948; J2704; J7120